=== PATIENT | female | born 1965 | race American Indian/Alaskan Native ===

== ENCOUNTER 2016-06-29 09:34 | Outpatient (CLI) | payer OTHER ==
--- NOTE | 2016-06-29 10:29 | XRay Report ---
LUMBAR SPINE RADIOGRAPHS: INDICATION: Lumbar pain. COMPARISON: None similar at this institution. FINDINGS: AP and lateral lumbar spine radiographs demonstrate well segmented lumbar vertebrae. Mild mid to lower lumbar degenerative spurring. Lower lumbar facet arthropathy and disc degeneration/narrowing also suspected. Few right hemipelvic phleboliths. Nonobstructive bowel gas pattern. Mild colonic stool/possible constipation. Few extrinsic clothing artifacts. CONCLUSION: No acute radiographic abnormality with lower lumbar degenerative changes noted, as described. Please correlate. Thank you for the opportunity to participate in this patient's care.
== END 2016-06-29 09:35 | disposition home or self-care (01) ==
LOC: XRAY 09:34
PROVIDERS: ATTEND Internal Medicine
DX: M47.896 Other spondylosis, lumbar region (principal); M12.88 Other specific arthropathies, not elsewhere classified, other specified site; I87.8 Other specified disorders of veins; E11.9 Type 2 diabetes mellitus without complications
CPT/HCPCS: 72100

== ENCOUNTER 2016-07-12 20:20 | Emergency (ER) | payer MEDICAID, OTHER ==
[2016-07-12 21:30] LABS: Basophils % (Auto) 1.9 % (0.0-1.8); Eosinophils % (Auto) 0.4 % (0.0-4.3); Hematocrit 37.7 % (30.3-42.9); Hemoglobin 12.1 gm/dl (10.1-14.3); Mean Corpuscular HGB Conc 32 % (30-34); Platelet Count 301 K/mm3 (140-440); Red Blood Count 5.59 M/mm3 (3.65-5.03); Red Cell Distribution Width 14.7 % (13.2-15.2); White Blood Count 14.8 K/mm3 (4.5-11.0)
[2016-07-12 21:46] LABS: Alanine Aminotransferase 11 units/L (7-56); Albumin 4.2 g/dL (3.9-5); Albumin/Globulin Ratio 1.3 %; Alkaline Phosphatase 120 units/L (35-129); Anion Gap 18 mmol/L; BUN/Creatinine Ratio 11.11; Blood Urea Nitrogen 10 mg/dL (7-17); Calcium 9.2 mg/dL (8.4-10.2); Carbon Dioxide 23 mmol/L (22-30); Glucose 152 mg/dL (65-100); Lipase 20 units/L (13-60); Sodium 137 mmol/L (137-145); Total Protein 7.5 g/dL (6.3-8.2)
[2016-07-12 21:50] LABS: Mean Corpuscular Hemoglobin 22 pg (28-32); Mean Corpuscular Volume 68 fl (79-97)
[2016-07-13] MEDS ORDERED: DILAUDID IV ONE (03:36)
[2016-07-13] MEDS ORDERED: ZOFRAN IV ONE (03:36)
[2016-07-13] MEDS ORDERED: TORADOL IV ONE (03:36)
[2016-07-13 03:42] LABS: Bilirubin,Urine Negative (Negative); Blood,Urine Small (Negative); Ketones,Urine Negative (Negative)
[2016-07-13 03:43] LABS: Leukocyte Esterase,Urine Small (Negative); Nitrite,Urine Negative (Negative); Protein,Urine <15 mg/dL mg/dL (Negative); Urobilinogen,Urine < 0.2 mg/dL (<2.0)
[2016-07-13 03:44] LABS: Mucus,Urine Few /HPF
[2016-07-13] MEDS ORDERED: ROCEPHIN/NS 1 GM/50 ML 1 GM/50 ML BAG IV ONE (04:23)
--- NOTE | 2016-07-13 04:27 | Emergency Department Report ---
ED Back Pain/Injury HPI - General Chief Complaint: Dyspnea/Respdistress Stated Complaint: SOB/BACK PAIN Time Seen by Provider: 07/13/16 03:00 Source: patient Limitations: No Limitations - History of Present Illness Initial Comments: 50-year-old female with a past medical history of [id number] diabetes and sickle cell trait presents to the hospital complaining of right- sided back pain times the last 3 days. Patient denies any injury but states she has a history of back issues due to herniated disks and rods and other surgery have been recommended. Patient also has a history of chronic urinary incontinence and has been noncompliant with her Ditropan. Patient has chronic bilateral lower extremity tingling secondary to neuropathy denies any acute neurologic changes. Patient states she is having exacerbation of her chronic back pain with right-sided pain and spasms. She also has mild dysuria and except presents concern for UTI. Patient has pain to her right lower back with deep inspiration and movement which causes her to feel short of breath with spasms. Patient denies any chest pain. - Related Data Previous Rx's Medication Instructions Recorded Last Taken Type Ibuprofen [Motrin] 800 mg PO Q8HR PRN #30 tablet 07/13/16 Unknown Rx Nitrofurantoin Cassia/M-Cryst 100 mg PO Q12HR #14 capsule 07/13/16 Unknown Rx [Macrobid CAP] oxyCODONE /ACETAMINOPHEN [Percocet 1 tab PO Q6HR PRN #20 tablet 07/13/16 Unknown Rx 5/325] Allergies Allergy/AdvReac Type Severity Reaction Status Date / Time No Known Allergies Allergy Unverified 06/29/16 09:35 ED Review of Systems ROS: Stated complaint: SOB/BACK PAIN Other details as noted in HPI Comment: All other systems reviewed and negative Other: Constitutional: No fevers chills Eyes: No eye pain visual changes ENT: No ear pain or throat pain Neck: Denies pain Respiratory: Denies cough wheezing shortness of breath Cardiovascular: Denies chest pain, palpitations, syncope GI: Denies abdominal pain, nausea, vomiting, diarrhea : Denies dysuria Musculoskeletal: as per hpi Skin: Denies rash, lesions, erythema Neurologic: Denies headache, numbness, weakness Psychiatric: Denies suicidal ideation, hallucinations ED Past Medical Hx - Past Medical History Previous Medical History?: Yes Hx Diabetes: Yes Hx Sickle Cell Disease: (Trait) Additional medical history: Lower Back Defect - Surgical History Past Surgical History?: No - Social History Smoking Status: Never Smoker Substance Use Type: None - Medications Home Medications: Home Medications Medication Instructions Recorded Confirmed Last Taken Type Ibuprofen [Motrin] 800 mg PO Q8HR PRN #30 tablet 07/13/16 Unknown Rx Nitrofurantoin Cassia/M-Cryst 100 mg PO Q12HR #14 capsule 07/13/16 Unknown Rx [Macrobid CAP] oxyCODONE /ACETAMINOPHEN [Percocet 1 tab PO Q6HR PRN #20 tablet 07/13/16 Unknown Rx 5/325] ED Physical Exam - General Limitations: No Limitations - Other Other exam information: General: No limitations, mild distress secondary to pain Head exam: Atraumatic, normocephalic Eyes exam: Normal appearance, pupils equal reactive to light, extraocular movements intact ENT: Moist mucous membrane, normal oropharynx Neck exam: Normal inspection, full range of motion, no meningismus nontender Respiratory exam: Clear to auscultation bilateral, no wheezes, rales, crackles Cardiovascular: Normal rate and rhythm, normal heart sounds Abdomen: Soft, nondistended, and nontender, with normal bowel sounds, no rebound, or guarding Extremity: Full range of motion normal inspection no deformity Back: Normal Inspection, full range of motion, reproducible tenderness to the right mid paraspinal muscles with spasm Neurologic: Alert, oriented x3, cranial nerves intact, no motor or sensory deficit Psychiatric: normal affect, normal mood Skin: Warm, dry, intact ED Course Vital Signs 07/12/16 07/13/16 07/13/16 20:40 01:41 05:09 Temperature 98.5 F 97.5 F L Pulse Rate 100 H 100 H 90 Respiratory 20 18 18 Rate Blood Pressure 120/68 Blood Pressure 125/73 126/72 [Right] O2 Sat by Pulse 100 98 98 Oximetry - Reevaluation(s) Reevaluation #1: 07/13/16 04:27 Patient treated with Dilaudid, Zofran, and Toradol - Consultations Consultation #1: 07/13/16 06:[address] Smith and states that patient to follow up regarding the possible right S1 nerve root compression ED Medical Decision Making - Lab Data Result diagrams: 07/12/16 21:15 05/17/17 21:15 Lab Results 07/12/16 07/12/16 07/12/16 Range/Units 21:15 21:15 21:15 WBC 14.8 H (4.5-11.0) K/mm3 RBC 5.59 H (3.65-5.03) M/mm3 Hgb 12.1 (10.1-14.3) gm/dl Hct 37.7 (30.3-42.9) % MCV 68 L (79-97) fl MCH 22 L (28-32) pg MCHC 32 (30-34) % RDW 14.7 (13.2-15.2) % Plt Count 301 (140-440) K/mm3 Lymph % (Auto) 28.8 (13.4-35.0) % Cassia % (Auto) 4.6 (0.0-7.3) % Eos % (Auto) 0.4 (0.0-4.3) % Baso % (Auto) 1.9 H (0.0-1.8) % Lymph # 4.2 (1.2-5.4) K/mm3 Cassia # 0.7 (0.0-0.8) K/mm3 Eos # 0.1 (0.0-0.4) K/mm3 Baso # 0.3 H (0.0-0.1) K/mm3 Seg Neutrophils % 64.3 (40.0-70.0) % Seg Neutrophils # 9.5 H (1.8-7.7) K/mm3 Sodium 137 (137-145) mmol/L Potassium 4.0 (3.6-5.0) mmol/L Chloride 100.0 (98-107) mmol/L Carbon Dioxide 23 (22-30) mmol/L Anion Gap 18 mmol/L BUN 10 (7-17) mg/dL Creatinine 0.9 (0.7-1.2) mg/dL Estimated GFR > 60 ml/min BUN/Creatinine Ratio 11.11 % Glucose 152 H (65-100) mg/dL Calcium 9.2 (8.4-10.2) mg/dL Total Bilirubin 0.20 (0.1-1.2) mg/dL AST 12 (5-40) units/L ALT 11 (7-56) units/L Alkaline Phosphatase 120 (35-129) units/L Troponin T < 0.010 (0.00-0.029) ng/mL Total Protein 7.5 (6.3-8.2) g/dL Albumin 4.2 (3.9-5) g/dL Albumin/Globulin Ratio 1.3 % Lipase 20 (13-60) units/L HCG, Qual Negative (Negative) Urine Color (Yellow) Urine Turbidity (Clear) Urine pH (5.0-7.0) Ur Specific [place] (1.003-1.030) Urine Protein (Negative) mg/dL Urine Glucose (UA) (Negative) mg/dL Urine Ketones (Negative) mg/dL Urine Blood (Negative) Urine Nitrite (Negative) Urine Bilirubin (Negative) Urine Urobilinogen (<2.0) mg/dL Ur Leukocyte Esterase (Negative) Urine WBC (Auto) (0.0-6.0) /HPF Urine RBC (Auto) (0.0-6.0) /HPF U Epithel Cells (Auto) (0-13.0) /HPF Urine Mucus /HPF // Range/Units 21:40 WBC (4.5-11.0) K/mm3 RBC (3.65-5.03) M/mm3 Hgb (10.1-14.3) gm/dl Hct (30.3-42.9) % MCV (79-97) fl MCH (28-32) pg MCHC (30-34) % RDW (13.2-15.2) % Plt Count (140-440) K/mm3 Lymph % (Auto) (13.4-35.0) % Cassia % (Auto) (0.0-7.3) % Eos % (Auto) (0.0-4.3) % Baso % (Auto) (0.0-1.8) % Lymph # (1.2-5.4) K/mm3 Cassia # (0.0-0.8) K/mm3 Eos # (0.0-0.4) K/mm3 Baso # (0.0-0.1) K/mm3 Seg Neutrophils % (40.0-70.0) % Seg Neutrophils # (1.8-7.7) K/mm3 Sodium (137-145) mmol/L Potassium (3.6-5.0) mmol/L Chloride (98-107) mmol/L Carbon Dioxide (22-30) mmol/L Anion Gap mmol/L BUN (7-17) mg/dL Creatinine (0.7-1.2) mg/dL Estimated GFR ml/min BUN/Creatinine Ratio % Glucose (65-100) mg/dL Calcium (8.4-10.2) mg/dL Total Bilirubin (0.1-1.2) mg/dL AST (5-40) units/L ALT (7-56) units/L Alkaline Phosphatase (35-129) units/L Troponin T (0.00-0.029) ng/mL Total Protein (6.3-8.2) g/dL Albumin (3.9-5) g/dL Albumin/Globulin Ratio % Lipase (13-60) units/L HCG, Qual (Negative) Urine Color Yellow (Yellow) Urine Turbidity Clear (Clear) Urine pH 5.0 (5.0-7.0) Ur Specific [place] 1.020 (1.003-1.030) Urine Protein <15 mg/dl (Negative) mg/dL Urine Glucose (UA) Negative (Negative) mg/dL Urine Ketones Negative (Negative) mg/dL Urine Blood Small A (Negative) Urine Nitrite Negative (Negative) Urine Bilirubin Negative (Negative) Urine Urobilinogen < 0.2 (<2.0) mg/dL Ur Leukocyte Esterase Small (Negative) Urine WBC (Auto) 21.0 H (0.0-6.0) /HPF Urine RBC (Auto) 12.0 (0.0-6.0) /HPF U Epithel Cells (Auto) < 1.0 (0-13.0) /HPF Urine Mucus Few /HPF - EKG Data -: EKG Interpreted by Me (sinus rhythm rate 87 t elevation or T-wave inversion) - Radiology Data Radiology results: report reviewed CT abdomen and pelvis noncontrast: Degenerative disc changes osteophytic ridging and facet atrophy at L5-S1 causing bilateral foraminal stenosis. Large osteophytic ridge causing right lateral recess stenosis at L5 L1 with probable compression of the right S1 nerve root. No other acute findings identified - Medical Decision Making Patient has ongoing chronic pain and surgery has been suggested to the patient. Patient will be referred to a neurosurgeon given CT findings and possible S1 right nerve compression. Patient denies any new symptoms such as new incontinence, numbness, or weakness. Pain meds will be prescribed - Differential Diagnosis muscle spasm, herniated disc, UTI, renal colic Critical Care Time: No Critical care attestation.: If time is entered above; I have spent that time in minutes in the direct care of this critically ill patient, excluding procedure time. ED Disposition Clinical Impression: Back muscle spasm, Degenerative disc disease at L5-S1 level, UTI (urinary tract infection) Disposition: DISCHARGED TO HOME OR SELFCARE Is pt being admited?: No Does the pt Need Aspirin: No Condition: Stable Instructions: Low Back Strain (ED), Degenerative Disc Disease (ED), Urinary Tract Infection in Women (ED) Additional Instructions: Take the medications as prescribed. Return if symptoms worsen. He had provided a copy of her CAT scan report. U have significant degenerative disc disease including probable compression of the right S1 nerve root. Please follow-up with a neurosurgeon provided with a neurosurgeon of your choice Prescriptions: Ibuprofen [Motrin] 800 mg PO Q8HR PRN #30 tablet PRN Reason: Pain Nitrofurantoin Cassia/M-Cryst [Macrobid CAP] 100 mg PO Q12HR #14 capsule oxyCODONE /ACETAMINOPHEN [Percocet 5/325] 1 tab PO Q6HR PRN #20 tablet PRN Reason: Pain Referrals: ALEXA TIPTON MD [Staff Physician] - 3-5 Days (neurosurgery) ARSEN SMITH MD [Staff Physician] - 3-5 Days (orthopedic) RADHA SALVADOR MD, PHD [Staff Physician] - 3-5 Days [facility] [Provider Group] - 3-5 Days Time of Disposition: 06:43
--- NOTE | 2016-07-13 05:52 | Cat Scan Report ---
FINAL REPORT PROCEDURE: CT ABDOMEN PELVIS WO CON TECHNIQUE: Computerized axial tomography of the abdomen and pelvis was performed without intravenous contrast. This study is performed without intravascular contrast material and its sensitivity for abdominal and pelvic pathology, including neoplasms, inflammation, abscess, free fluid, thrombosis, arterial dissection and infarction, is reduced compared with a contrast enhanced study. HISTORY: right flank pain, hematuria, chronic back pain COMPARISON: No prior studies are available for comparison. FINDINGS: Visualized lower thorax: No significant abnormality. Liver: Normal size and attenuation. Spleen: Normal size and attenuation. Gallbladder and biliary system: Normal. Pancreas: Normal. Adrenals: Normal. Kidneys: There is no nephrolithiasis or obstructive uropathy.. GI tract: There is no bowel obstruction, colitis or enteritis. The appendix is normal.. Lymph nodes and mesentery: Normal. Vasculature: Normal. Bladder: Normal. Reproductive organs: Uterus is unremarkable. There is no ovarian pathology.. Peritoneum: There is no ascites, free air, abscess or adenopathy.. Musculoskeletal structures: There is degenerative disc change, osteophytic ridging and facet arthropathy at L5-S1 causing bilateral foraminal stenosis. There is a large osteophytic ridge causing right lateral recess stenosis at L5-S1 with probable compression on the right S1 nerve root.. Other: None. IMPRESSION: There is no nephrolithiasis or obstructive uropathy.. There is no bowel obstruction, colitis or enteritis. The appendix is normal.. Uterus is unremarkable. There is no ovarian pathology.. There is no ascites, free air, abscess or adenopathy.. There is degenerative disc change, osteophytic ridging and facet arthropathy at L5-S1 causing bilateral foraminal stenosis. There is a large osteophytic ridge causing right lateral recess stenosis at L5-S1 with probable compression on the right S1 nerve root.. .
[2016-07-13 07:03] VITALS: BP 122/76
--- NOTE | 2016-07-13 07:15 | XRay Report ---
CHEST 2 VIEWS INDICATION: Shortness of breath for 4-5 days. History of asthma, bronchitis. Smoker. COMPARISON: None similar. FINDINGS: PA and lateral chest radiographs demonstrate normal cardiomediastinal silhouette. Well-expanded lungs with minimally prominent markings. Intact bones. CONCLUSION: No acute disease in the chest. Thank you for the opportunity to participate in this patient's care.
== END 2016-07-13 07:03 | disposition home or self-care (01) ==
LOC: ED 20:20
DX: M51.36 Other intervertebral disc degeneration, lumbar region (principal); N39.0 Urinary tract infection, site not specified; M62.830 Muscle spasm of back; E11.9 Type 2 diabetes mellitus without complications
CPT/HCPCS: 36415; 71020; 74176; 80053; 81001; 83690; 84484; 84703; 85025; 93005; 93010; 96365; 96375; 99284; J0696; J1170; J1885; J2405